=== PATIENT | female | born 1945 | race Hispanic/Latino ===

== ENCOUNTER 2016-11-29 06:38 | Day surgery (SDC) | payer MEDICARE ==
[2016-11-18 09:50] VITALS: BMI 32.1
[2016-11-29] MEDS ORDERED: Propofol 10 mg/ml Inj (20 ML) ONE (08:10)
[2016-11-29] MEDS ORDERED: Sodium Chloride 0.9% 1,000 ML IV SCH (08:45)
[2016-11-29 10:06] VITALS: BP 145/76; PULSE 57; RESP 16; TEMP 97.6; O2SAT 100
== END 2016-11-29 09:45 | disposition home or self-care (01) ==
LOC: ENDO 06:38
PROVIDERS: ATTEND Internal Medicine
DX: K29.50 Unspecified chronic gastritis without bleeding (principal); K44.9 Diaphragmatic hernia without obstruction or gangrene; K21.9 Gastro-esophageal reflux disease without esophagitis
CPT/HCPCS: 43239; 88305; 88312; 88342; J2001; J2704; J3010; J7040

== ENCOUNTER → 2018-11-04 | Outpatient (CLI) | payer MEDICARE | LOC: LAB 07:18 ==

== ENCOUNTER 2019-01-06 08:03 | Outpatient (CLI) | payer MEDICARE | END 2019-01-06 08:04 | disposition home or self-care (01) | LOC: RAD 08:03 ==